=== PATIENT | female | born 1935 | race Asian ===

== ENCOUNTER → 2019-12-08 | Emergency (ER) | payer MEDICARE, MEDICAID ==
[~2019-12-08] VITALS: Ht 167.6 cm; Wt 81.6 kg
[~2019-12-08] MED LIST: AMLODIPINE BES2.5 MG ORAL; COLACE100 MG ORAL; DIOVAN HCT 1601 EACH ORAL; Ibuprofen Susp 100mg/5ml ONE; Ibuprofen Susp 100mg/5ml ORAL ONE; METFORMIN HCL500 M1 ORAL; OYSTER SHELL 51 EAC1 PO; TRIBENZOR 40-51 EAC1 ORAL; cefTRIAXone 1 GM in NS 55 ML IVPB ONE
--- NOTE | 2019-12-08 12:30 | NUR ---
ED Nurse Note: patient brought into ED from home by ambulance RA 29, per ems, family reported that patient as been more lethargic than usual since this morning. per ems, patient's O2 sat was 86% on room air, patient was placed on a 15L NRB on scene. patient's O2 sat was decreasing on RA to 91% upon arrival. patient was placed on a 2L NC at bedside, which kept her 98%. patient is alert awake x1, slow to answer questions, unable to follow commands at this aren. patient appears to be lethargic.
[2019-12-08 12:32] VITALS: BP 168/72
--- NOTE | 2019-12-08 12:50 | NUR ---
ED Nurse Note: patient taken to CT scan.
--- NOTE | 2019-12-08 12:52 | Diagnostic Imaging Report ---
EXAM: XR Chest, 1 View CLINICAL HISTORY: CP TECHNIQUE: Frontal view of the chest. COMPARISON: No relevant prior studies available. FINDINGS: Lungs: Mild left basilar atelectasis/pneumonitis. Pleural space: Unremarkable. No pneumothorax. Heart: Unremarkable. No cardiomegaly. Mediastinum: Unremarkable. Bones/joints: No acute fracture. Upper abdomen: Mild elevation of the left diaphragm. IMPRESSION: Mild left basilar atelectasis/pneumonitis.
[2019-12-08 12:56] LABS: HEMATOCRIT 40.9 % (37.0-47.0); HEMOGLOBIN 14.4 G/DL (12.0-16.0); MEAN CORPUSCULAR VOLUME 96 FL (80-99); PLATELET COUNT 113 K/UL (150-450); RED BLOOD COUNT 4.26 M/UL (4.20-5.40); RED CELL DISTRIBUTION WIDTH 10.7 % (11.6-14.8); WHITE BLOOD COUNT 12.6 K/UL (4.8-10.8)
--- NOTE | 2019-12-08 13:10 | NUR ---
ED Nurse Note: patient came back from CT scan. family at bedside.
[2019-12-08 13:17] LABS: ANION GAP 10 mmol/L (5-15); BLOOD UREA NITROGEN 35 mg/dL (7-18); CALCIUM 9.8 MG/DL (8.5-10.1); CARBON DIOXIDE 34 MMOL/L (21-32); CHLORIDE 95 MMOL/L (98-107); CREATININE 1.4 MG/DL (0.55-1.30); POTASSIUM 3.3 MMOL/L (3.5-5.1); SODIUM 139 MMOL/L (136-145)
--- NOTE | 2019-12-08 13:25 | Diagnostic Imaging Report ---
EXAM: CT Head Without Intravenous Contrast CLINICAL HISTORY: AMS TECHNIQUE: Axial computed tomography images of the head/brain without intravenous contrast. CTDI is 60 mGy and DLP is 1304.2 mGy-cm. One or more of the following dose reduction techniques were used: automated exposure control, adjustment of the mA and/or kV according to patient size, use of iterative reconstruction technique. COMPARISON: No relevant prior studies available. FINDINGS: Brain: No hemorrhage. No edema. Involutional changes with small vessel disease. Ventricles: No ventriculomegaly. Bones/joints: No acute fracture. Soft tissues: Unremarkable. Sinuses: No acute sinusitis. Mastoid air cells: No mastoid effusion. Cataract surgery. IMPRESSION: No acute intracranial process.
[2019-12-08 13:28] LABS: ALANINE AMINOTRANSFERASE 17 U/L (12-78); ALBUMIN 3.6 G/DL (3.4-5.0); ALBUMIN/GLOBULIN RATIO 0.7 (1.0-2.7); ALKALINE PHOSPHATASE 49 U/L (46-116); ASPARTATE AMINO TRANSFERASE 19 U/L (15-37); BILIRUBIN,TOTAL 1.5 MG/DL (0.2-1.0); CKMB < 0.5 NG/ML (0.0-3.6); CREATINE KINASE 72 U/L (26-308)
[2019-12-08 13:29] LABS: BILIRUBIN,DIRECT 0.3 MG/DL (0.0-0.3)
[2019-12-08 13:42] VITALS: BP 166/61
[2019-12-08 13:59] LABS: APPEARANCE,URINE SLIGHTLY CLOUDY; BILIRUBIN, URINE NEGATIVE (NEGATIVE); GLUCOSE, URINE (UA) NEGATIVE (NEGATIVE); KETONES,URINE 1+ (NEGATIVE); LEUKOCYTE ESTERASE ,URINE 3+ (NEGATIVE); NITRITE,URINE POSITIVE (NEGATIVE); PH,URINE 5 (4.5-8.0); PROTEIN,URINE 3+ (NEGATIVE); UROBILINOGEN,URINE NORMAL MG/DL (0.0-1.0)
--- NOTE | 2019-12-08 14:00 | Diagnostic Imaging Report ---
EXAM: CT Abdomen and Pelvis Without Intravenous Contrast CLINICAL HISTORY: AMS TECHNIQUE: Axial computed tomography images of the abdomen and pelvis without intravenous contrast. CTDI is 17.5 mGy and DLP is 955 mGy-cm. One or more of the following dose reduction techniques were used: automated exposure control, adjustment of the mA and/or kV according to patient size, use of iterative reconstruction technique. COMPARISON: No relevant prior studies available. FINDINGS: Lung bases: Unremarkable. Heart: Cardiomegaly. ABDOMEN: Liver: Unremarkable Gallbladder and bile ducts: No calcified stones. No ductal dilation. Pancreas: Unremarkable. Spleen: Unremarkable. Adrenals: Unremarkable. Kidneys and ureters: Ectasia of the right renal collecting system and ureter and associated stranding. No ureteral stone. Renal cysts and too small to characterize foci. Stomach and bowel: No jaqui mural thickening. Nonobstructive bowel gas pattern. PELVIS: Appendix: Appendix not identified. Bladder: Unremarkable. Reproductive: Hysterectomy. ABDOMEN and PELVIS: Intraperitoneal space: Unremarkable. Bones/joints: Spondylolysis at L4 with spondylolisthesis L4-5. Compression deformity at T12. Soft tissues: Unremarkable. Vasculature: Unremarkable. No abdominal aortic aneurysm. Lymph nodes: No enlarged lymph nodes. IMPRESSION: Ectasia of the right renal collecting system and ureter and associated stranding. No ureteral stone. Findings may be on the basis of a passed stone or infection in the appropriate clinical setting.
[2019-12-08 14:06] LABS: COLOR,URINE YELLOW
--- NOTE | 2019-12-08 14:08 | Emergency Room Report ---
History of Present Illness General Chief Complaint: Dyspnea/Respdistress Source: Patient, Family Member, EMS (Herminia Hobson DO) Present Illness HPI Patient presents with complaints of increased weakness and lethargy ongoing since yesterday Tuesday around noon Family reports that the patient has been weaker than usual appears to be less energetic and interactive there was no change in speech He denies any vomiting or diarrhea patient had also complained of some diffuse abdominal discomfort the family (Herminia Hobson DO) Allergies: Coded Allergies: No Known Allergies (Unverified , 12/08/19) Patient History Past Medical History: see triage record Reviewed Nursing Documentation: PMH: Agreed; PSxH: Agreed (Herminia Hobson DO) Nursing Documentation-PMH Past Medical History: No History, Except For Hx Hypertension: Yes Hx Diabetes: Yes (Herminia Hobson DO) Review of Systems All Other Systems: negative except mentioned in HPI (Herminia Hobson DO) Physical Exam Vital Signs Date Time Temp Pulse Resp B/P (MAP) Pulse Ox O2 Delivery O2 Flow Rate FiO2 12/08/19 12:22 97.9 88 19 176/84 (114) 93 Room Air Sp02 EP Interpretation: reviewed, normal General Appearance: no apparent distress Head: normocephalic, atraumatic Eyes: bilateral eye PERRL, bilateral eye EOMI ENT: hearing grossly normal, TMs + canals normal, uvula midline, dry mucus membranes Neck: full range of motion, supple, no meningismus, no bony tend Respiratory: lungs clear, normal breath sounds, no rhonchi, no respiratory distress, no retraction, no accessory muscle use Cardiovascular #1: normal peripheral pulses, regular rate, rhythm, no edema, no gallop, no JVD, no murmur Gastrointestinal: normal bowel sounds, non tender, soft, no mass, no organomegaly, non-distended, no guarding, no hernia, no pulsatile mass, no rebound Genitourinary: no CVA tenderness Musculoskeletal: normal inspection Neurologic: motor strength/tone normal, oriented x3, sensory intact, responsive Psychiatric: mood/affect normal Skin: no rash Lymphatic: normal inspection, no adenopathy (Herminia Hobson DO) Medical Decision Making Diagnostic Impression: Primary Impression: UTI (urinary tract infection) Additional Impression: Pyelonephritis ER Course Given the history exam and presentation multiple differentials and consideration Including but not limited to pneumonia, UTI, colitis Patient's description from the family sounds to be weaker than usual Patient symptoms do not meet and are not consistent with CVA type complaints However imaging studies were obtained does not show any acute process patient's urine sample is significantly infected IV hydration antibiotics initiated And patient transferred secondary to insurance request Labs Test 12/08/19 12:30 12/08/19 13:41 White Blood Count 12.6 K/UL (4.8-10.8) Red Blood Count 4.26 M/UL (4.20-5.40) Hemoglobin 14.4 G/DL (12.0-16.0) Hematocrit 40.9 % (37.0-47.0) Mean Corpuscular Volume 96 FL (80-99) Mean Corpuscular Hemoglobin 33.9 PG (27.0-31.0) Mean Corpuscular Hemoglobin Concent 35.2 G/DL (32.0-36.0) Red Cell Distribution Width 10.7 % (11.6-14.8) Platelet Count 113 K/UL (150-450) Mean Platelet Volume 7.0 FL (6.5-10.1) Neutrophils (%) (Auto) % (45.0-75.0) Lymphocytes (%) (Auto) % (20.0-45.0) Monocytes (%) (Auto) % (1.0-10.0) Eosinophils (%) (Auto) % (0.0-3.0) Basophils (%) (Auto) % (0.0-2.0) Differential Total Cells Counted 100 Neutrophils % (Manual) 90 % (45-75) Lymphocytes % (Manual) 5 % (20-45) Monocytes % (Manual) 5 % (1-10) Eosinophils % (Manual) 0 % (0-3) Basophils % (Manual) 0 % (0-2) Band Neutrophils 0 % (0-8) Platelet Estimate Decreased Platelet Morphology Normal Red Blood Cell Morphology Normal Sodium Level 139 MMOL/L (136-145) Potassium Level 3.3 MMOL/L (3.5-5.1) Chloride Level 95 MMOL/L (98-107) Carbon Dioxide Level 34 MMOL/L (21-32) Anion Gap 10 mmol/L (5-15) Blood Urea Nitrogen 35 mg/dL (7-18) Creatinine 1.4 MG/DL (0.55-1.30) Estimat Glomerular Filtration Rate mL/min (>60) Glucose Level 198 MG/DL (74-106) Lactic Acid Level 2.00 mmol/L (0.4-2.0) Calcium Level 9.8 MG/DL (8.5-10.1) Total Bilirubin 1.5 MG/DL (0.2-1.0) Direct Bilirubin 0.3 MG/DL (0.0-0.3) Aspartate Amino Transf (AST/SGOT) 19 U/L (15-37) Alanine Aminotransferase (ALT/SGPT) 17 U/L (12-78) Alkaline Phosphatase 49 U/L (46-116) Total Creatine Kinase 72 U/L (26-308) Creatine Kinase MB < 0.5 NG/ML (0.0-3.6) Creatine Kinase MB Relative Index 0.6 Troponin I 0.016 ng/mL (0.000-0.056) Pro-B-Type Natriuretic Peptide 689 pg/mL (0-125) Total Protein 8.6 G/DL (6.4-8.2) Albumin 3.6 G/DL (3.4-5.0) Globulin 5.0 g/dL Albumin/Globulin Ratio 0.7 (1.0-2.7) Lipase 122 U/L (73-393) (Herminia Hobson DO) ER Course Patient was endorsed me with Dr. Hobson see his note for full HPI. Patient was given IV antibiotics due to urinary infection with negative influenza study. Patient was discussed with Dr. Roby Whiteside who agreed to accept the patient as a transfer. Patient was given Tylenol as well as ibuprofen after recurrent fever. She was also given some IV fluids. Patient is noted to have continued good oxygen saturation as well as improvement in heart rate after antipyretics. Labs Test 12/08/19 12:30 12/08/19 13:41 White Blood Count 12.6 K/UL (4.8-10.8) Red Blood Count 4.26 M/UL (4.20-5.40) Hemoglobin 14.4 G/DL (12.0-16.0) Hematocrit 40.9 % (37.0-47.0) Mean Corpuscular Volume 96 FL (80-99) Mean Corpuscular Hemoglobin 33.9 PG (27.0-31.0) Mean Corpuscular Hemoglobin Concent 35.2 G/DL (32.0-36.0) Red Cell Distribution Width 10.7 % (11.6-14.8) Platelet Count 113 K/UL (150-450) Mean Platelet Volume 7.0 FL (6.5-10.1) Neutrophils (%) (Auto) % (45.0-75.0) Lymphocytes (%) (Auto) % (20.0-45.0) Monocytes (%) (Auto) % (1.0-10.0) Eosinophils (%) (Auto) % (0.0-3.0) Basophils (%) (Auto) % (0.0-2.0) Differential Total Cells Counted 100 Neutrophils % (Manual) 90 % (45-75) Lymphocytes % (Manual) 5 % (20-45) Monocytes % (Manual) 5 % (1-10) Eosinophils % (Manual) 0 % (0-3) Basophils % (Manual) 0 % (0-2) Band Neutrophils 0 % (0-8) Platelet Estimate Decreased Platelet Morphology Normal Red Blood Cell Morphology Normal Sodium Level 139 MMOL/L (136-145) Potassium Level 3.3 MMOL/L (3.5-5.1) Chloride Level 95 MMOL/L (98-107) Carbon Dioxide Level 34 MMOL/L (21-32) Anion Gap 10 mmol/L (5-15) Blood Urea Nitrogen 35 mg/dL (7-18) Creatinine 1.4 MG/DL (0.55-1.30) Estimat Glomerular Filtration Rate mL/min (>60) Glucose Level 198 MG/DL (74-106) Lactic Acid Level 2.00 mmol/L (0.4-2.0) Calcium Level 9.8 MG/DL (8.5-10.1) Total Bilirubin 1.5 MG/DL (0.2-1.0) Direct Bilirubin 0.3 MG/DL (0.0-0.3) Aspartate Amino Transf (AST/SGOT) 19 U/L (15-37) Alanine Aminotransferase (ALT/SGPT) 17 U/L (12-78) Alkaline Phosphatase 49 U/L (46-116) Total Creatine Kinase 72 U/L (26-308) Creatine Kinase MB < 0.5 NG/ML (0.0-3.6) Creatine Kinase MB Relative Index 0.6 Troponin I 0.016 ng/mL (0.000-0.056) Pro-B-Type Natriuretic Peptide 689 pg/mL (0-125) Total Protein 8.6 G/DL (6.4-8.2) Albumin 3.6 G/DL (3.4-5.0) Globulin 5.0 g/dL Albumin/Globulin Ratio 0.7 (1.0-2.7) Lipase 122 U/L (73-393) Urine Color Yellow Urine Appearance Slightly cloudy Urine pH 5 (4.5-8.0) Urine Specific [place] 1.015 (1.005-1.035) Urine Protein 3+ (NEGATIVE) Urine Glucose (UA) Negative (NEGATIVE) Urine Ketones 1+ (NEGATIVE) Urine Blood 5+ (NEGATIVE) Urine Nitrite Positive (NEGATIVE) Urine Bilirubin Negative (NEGATIVE) Urine Urobilinogen Normal MG/DL (0.0-1.0) Urine Leukocyte Esterase 3+ (NEGATIVE) Urine RBC 5-10 /HPF (0 - 2) Urine WBC 60-80 /HPF (0 - 2) Urine Squamous Epithelial Cells Few /LPF (NONE/OCC) Urine Bacteria Many /HPF (NONE) (Pete Cuello MD) Rhythm Strip Diag. Results EP Interpretation: yes Rate: 88 Rhythm: NSR, no PVC's, no ectopy (Herminia Hobson DO) Chest X-Ray Diagnostic Results Chest X-Ray Diagnostic Results : Chest X-Ray Ordered: Yes # of Views/Limited/Complete: 1 View Indication: Shortness of Breath EP Interpretation: Yes Interpretation: no effusion, no pneumothorax, other - Small right-sided atelectasis Impression: Other - Small lower lobe atelectasis Electronically Signed by: Herminia Hobson DO (Herminia Hobson DO) CT/MRI/US Diagnostic Results CT/MRI/US Diagnostic Results : Impression CT head no acute disease CT abdomen pelvisIMPRESSION: Ectasia of the right renal collecting system and ureter and associated stranding. No ureteral stone. Findings may be on the basis of a passed stone or infection in the appropriate clinical setting. (Herminia Hobson DO) Last Vital Signs Date Time Temp Pulse Resp B/P (MAP) Pulse Ox O2 Delivery O2 Flow Rate FiO2 12/08/19 13:42 102.8 82 24 166/61 97 Room Air Status: improved (Herminia Hobson DO) Status: improved (Pete Cuello MD) Disposition: XFER SHT-TRM HOSP Condition: Serious Referrals: NOT CHOSEN IPA/,REFERRING (PCP) Herminia Hobson DO Dec 08, 2019 14:08 Pete Ceullo MD Dec 08, 2019 19:04
[2019-12-08 15:24] VITALS: BP 127/54
--- NOTE | 2019-12-08 16:26 | NUR ---
ED Nurse Note: Nick Whiteside [phone]
--- NOTE | 2019-12-08 17:18 | NUR ---
ED Nurse Note: report given to Sonia NOONAN at [facility]. endorsed all plan of care to Sonia NOONAN
--- NOTE | 2019-12-08 18:22 | NUR ---
ED Nurse Note: notified to Dr. Cuello regarding patient has fever, orally 101.9 F. received verbal order for tylenol 650mg oral, given as ordered.
[2019-12-08 18:40] VITALS: BP 174/72
--- NOTE | 2019-12-08 18:40 | NUR ---
ED Nurse Note: patient started shaking, heartrate to 120-130's, O2 sat was dropping to 80's. nonrebreather applied, which patient tolerated. patient was alert and awake able to follow commands. rectal temp was 104.6F, charge nurse izabel at bedside. ice packs applied. motrin was given as verball ordered by Dr. Cuello by Izabel TONY. ekg done at bedside.
--- NOTE | 2019-12-08 19:16 | NUR ---
ED Nurse Note: patient is being transferred to [facility] via [facility]. patient's heart rate is going down, HR 101, RR 26, 6L Facemask O2 sat 97%, 148/58 BP.
[2019-12-08 19:18] VITALS: BP 148/58
--- NOTE | 2019-12-08 19:20 | NUR ---
ED Nurse Note: oral temp rechecked, 103.6F, patient is being transferred via [facility]. patient is alert awake x3 able to follow commands, able to recognize the grandson at bedside.
[2019-12-08 19:21] VITALS: BP 148/58
--- NOTE | 2019-12-08 19:21 | NUR ---
HAND-OFF: Report given to Kisha NOONAN.
== END | disposition short-term general hospital (02) ==
LOC: EDSEX 12:18 → EDBD 12:18 → EMR 13:19
DX: N12 Tubulo-interstitial nephritis, not specified as acute or chronic (principal); N39.0 Urinary tract infection, site not specified; E11.9 Type 2 diabetes mellitus without complications; I10 Essential (primary) hypertension
CPT/HCPCS: 36415; 70450; 71045; 74176; 80053; 81003; 82248; 82550; 82553; 83605; 83690; 83880; 84484; 85007; 85025; 86710; 87040; 87086; 87181; 93005; 96361; 96365; 99285; J0696; J7030